=== PATIENT | male | born 1955 | race Caucasian/White ===

== ENCOUNTER 2017-12-17 19:31 | Emergency (ER) | payer OTHER, MEDICAID ==
[~2017-12-17] VITALS: Ht 172.7 cm; Wt 95.9 kg
[~2017-12-17 19:31] MED LIST: ALBU2.5I INH; ASPI81TA11 PO; ATOR20TA PO; CLOT1CRE6 TOPICAL; GINKTAB; LACTCAP7 PO; NEBULIZER1 MI1; PANT20 PO; PNEU0.5I IM; PRED20 PO; SYMB80AE INH; XANA0.5T PO; Z.0.OXYGENDME NC; ZOSTINJ SQ; [UNRECOGNIZED DRUG - OTHER]
[2017-12-17 19:34] VITALS: BP 176/98; PULSE 88; RESP 16; TEMP 98.2; O2SAT 94
--- NOTE | 2017-12-17 20:09 | RADRPT ---
EXAM DATE/TIME: 12/17/2017 19:46 [facility] COMPARISON: CHEST PA & LAT, April 03, 2016, 21:45. INDICATIONS : Right side chest pain. No known injury. MEDICAL HISTORY : Chronic obstructive pulmonary disease. Left rib fractures. SURGICAL HISTORY : None. ENCOUNTER: Initial ACUITY: 2 days PAIN SCORE: 9/10 LOCATION: Right lower chest FINDINGS: PA and lateral views of the chest demonstrate the lungs to be symmetrically aerated without evidence of mass, infiltrate or effusion. The cardiomediastinal contours are unremarkable. Osseous structure s are intact. CONCLUSION: 1. No acute cardiopulmonary disease. Luis Kevin MD on December 17, 2017 at 20:07 Board Certified Radiologist. This report was verified electronically.
[2017-12-17 21:06] LABS: BASOPHIL # 0.1 TH/MM3 (0-0.2); BASOPHIL % 0.7 % (0.0-2.0); EOSINOPHIL # 0.4 TH/MM3 (0-0.4); EOSINOPHIL % 3.7 % (0.0-4.0); HEMATOCRIT 44.8 % (39.0-51.0); HEMOGLOBIN 15.2 GM/DL (13.0-17.0); LYMPH % 37.1 % (9.0-44.0); LYMPHOCYTE # 4.4 TH/MM3 (1.0-4.8); MEAN CELL VOLUME 96.8 FL (80.0-100.0); MEAN CORPUSCULAR HEMOGLOBIN 32.9 PG (27.0-34.0); MEAN CORPUSCULAR HGB CONC 33.9 % (32.0-36.0); MEAN PLATELET VOLUME 7.6 FL (7.0-11.0); MONO % 7.6 % (0.0-8.0); MONOCYTE # 0.9 TH/MM3 (0-0.9); NEUT % 50.9 % (16.0-70.0); PLATELET COUNT 222 TH/MM3 (150-450); RED BLOOD COUNT 4.63 MIL/MM3 (4.50-5.90); RED CELL DISTRIBUTION WIDTH 14.3 % (11.6-17.2); WHITE BLOOD COUNT 11.8 TH/MM3 (4.0-11.0)
[2017-12-17 21:33] LABS: ALBUMIN 3.9 GM/DL (3.4-5.0); AST (GOT) 16 U/L (15-37); BICARBONATE 27.8 MEQ/L (21.0-32.0); BLOOD UREA NITROGEN 17 MG/DL (7-18); CALCIUM 8.8 MG/DL (8.5-10.1); CHLORIDE 106 MEQ/L (98-107); CREATININE 0.94 MG/DL (0.60-1.30); GLOMERULAR FILTRATION RATE 81 ML/MIN (>89); GLUCOSE,RANDOM 86 MG/DL (74-106); SODIUM (NA) 141 MEQ/L (136-145)
[2017-12-17 21:34] LABS: ALT (GPT) 18 U/L (12-78)
[2017-12-17 21:36] LABS: ALKALINE PHOSPHATASE 34 U/L (45-117); TOTAL BILIRUBIN ADULT 0.3 MG/DL (0.2-1.0)
[2017-12-17 23:23] VITALS: BP_SYST 179; BP_SYST 180; BP_DIAS 88; BP_DIAS 94; PULSE 79; RESP 18; O2SAT 99
[2017-12-17] MEDS ORDERED: ONDANSETRON HCL 4 MG/2 ML VIAL IVP ONE (23:30)
[2017-12-17] MEDS ORDERED: HYDROmorphone HCL PF 1 MG/ML VIAL IVS ONE (23:30)
[2017-12-17] MEDS ORDERED: SODIUM CHLORIDE 0.9% FLUSH 10 ML FLUSH IV FLUSH PRN (23:30)
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
[2017-12-17 23:32] VITALS: O2SAT 96
[2017-12-17] MEDS ORDERED: ALBU.5I NEB (23:37)
[2017-12-17] MEDS ORDERED: PRED20 PO (23:37)
[2017-12-17] MEDS ORDERED: MELO7.5T27 PO (23:37)
[2017-12-17] MEDS ORDERED: [UNRECOGNIZED DRUG - OTHER] PO (23:37)
[2017-12-18] MEDS ORDERED: HYDROmorphone HCL PF 2 MG/ML VIAL IV ONE (00:15)
[2017-12-18] MEDS ORDERED: MORPHINE SULFATE 4 MG/ML INJ IV PUSH PRN (00:30)
[2017-12-18] MEDS ORDERED: ACETAMINOPHEN/HYDROcodone 325 MG/7.5 MG TAB PO PRN (00:30)
[2017-12-18] MEDS ORDERED: ASPIRIN 81 MG CHEW TAB PO ONE (00:30)
[2017-12-18] MEDS ORDERED: SODIUM CHLORIDE 0.9% FLUSH 10 ML FLUSH IV FLUSH PRN (00:30)
[2017-12-18] MEDS ORDERED: ONDANSETRON HCL 4 MG/2 ML VIAL IV PUSH PRN (00:30)
[2017-12-18 00:33] VITALS: BP 160/89; PULSE 74; O2SAT 96
[2017-12-18] MEDS ORDERED: IOHEXOL 350 MG/ML 10 ML VIAL (for RAD DIAG) IVCONTRAST ONE (00:46)
[2017-12-18 00:55] LABS: TROPONIN I LESS THAN 0.02 NG/ML (0.02-0.05)
--- NOTE | 2017-12-18 01:13 | RADRPT ---
EXAM DATE/TIME: 12/18/2017 00:40 This report includes an Addendum and supersedes previous reports for this exam. [facility] COMPARISON: No previous studies available for comparison. INDICATIONS : Back pain. IV CONTRAST: 100 cc Omnipaque 350 (iohexol) IV RADIATION DOSE: 9.23 CTDIvol (mGy) MEDICAL HISTORY : Chronic obstructive pulmonary disease. Congestive heart failure. SURGICAL HISTORY : None. ENCOUNTER: Initial ACUITY: 1 day PAIN SCALE: 8/10 LOCATION: Bilateral back TECHNIQUE: Volumetric scanning was performed using a multi-row detector CT scanner. The data was post processed with a variety of visualization algorithms including full volume maximum intensity projection, multi -planar sliding thin slab reformation, curved planar reformation, and surface rendering techniques. Using automated exposure control and adjustment of the mA and/or kV according to patient size, radiat ion dose was kept as low as reasonably achievable to obtain optimal diagnostic quality images. DICOM format image data is available electronically for review and comparison. FINDINGS: LUNGS: There is no consolidation or pneumothorax. No concerning pulmonary nodule is visualized. No pleural fluid is present. MEDIASTINUM: No abnormally enlarged lymph nodes by CT criteria. No axillary or hilar abnormalities are identified. ABDOMEN: The liver and spleen are free of focal defects. The gallbladder and pancreas demonstrate no abnormali ty. The adrenal glands are normal. The kidneys demonstrate no evidence of solid renal mass or hydrone phrosis. No free fluid or abdominal masses are identified. No para-aortic adenopathy is seen. PELVIS: No evidence of free fluid or pelvic mass. No abnormally enlarged inguinal or retroperitoneal lymph no sonia are present. The bladder is unremarkable. THORACIC AORTA: The thoracic aortic root is normal with normal branching of the great vessels. There is no evidence of aneurysm or dissection. There is mild atherosclerotic change. ABDOMINAL AORTA: The aorta is normal in caliber without aneurysm or dissection. The renal arteries are patent bilater ally. The proximal celiac and superior mesenteric arteries are patent and normal in diameter. PELVIC VESSELS: The internal iliac and external iliac vessels are patent without aneurysm or stenosis. CONCLUSION: Thoracic aorta is intact with no evidence of aneurysm or dissection. Mild atheroscler otic changes are present. Chacho Tobin MD on December 18, 2017 at 1:10 Board Certified Radiologist. This report was verified electronically. ADDENDUM: COMPARISON: CT PULMONARY ANGIOGRAM, April 04, 2016, 18:34. We are asked to comment upon the patient's pulmonary circulation as the patient has chest pain. There is excellent filling of the pulmonary vasculature. These are well-visualized. There is no pulmo nary embolus. Ronnell Davila MD on December 18, 2017 at 9:33 Board Certified Radiologist. This report was verified electronically.
[2017-12-18 01:45] VITALS: BP 171/97; PULSE 81; RESP 20; TEMP 97.7; O2SAT 94
[2017-12-18 03:53] LABS: TROPONIN I LESS THAN 0.02 NG/ML (0.02-0.05)
[2017-12-18 04:00] VITALS: BP 136/74; PULSE 65; RESP 20; TEMP 98.6; O2SAT 97
[2017-12-18] MEDS ORDERED: NITROGLYCERIN 2% OINT 1 GM PACKET TOP SCH (06:00)
[2017-12-18 08:00] VITALS: BP 150/73; PULSE 71; RESP 17; TEMP 96.6; O2SAT 90
[2017-12-18] MEDS ORDERED: SODIUM CHLORIDE 0.9% FLUSH 10 ML FLUSH IV FLUSH SCH (09:00)
[2017-12-18] MEDS ORDERED: PANTOPRAZOLE SOD 40 MG DELAYED RELEASE TAB PO SCH (09:00)
[2017-12-18] MEDS ORDERED: RESP: ALBUTEROL 2.5 MG/3 ML NEB (PRN) NEB (09:30)
[2017-12-18] MEDS ORDERED: methylPREDNISolone SOD SUCC 125 MG/2 ML VIAL IV PUSH SCH (09:30)
[2017-12-18] MEDS ORDERED: BUDESONIDE-FORMOTEROL 80/4.5 MCG INHALER INH SCH (09:30)
--- NOTE | 2017-12-18 10:41 | HHI.HP ---
HPI Primary Care Physician Unknown Chief Complaint Chest pain History of Present Illness This is a 62-year-old male with history of COPD and hyperlipidemia presents to ED with complaint of chest pain. Patient states that 5 days ago he began with a middle back pain. Then 2 days ago he started having the same type of discomfort but it was in the center of his chest. He states it is still there. Discomfort has been there greater than 2 hours constant. It is worse when he coughs. States that the pain medicine that he was given in the emergency department did seem to help. He does not recall being short of breath nauseous or diaphoretic. States he was wheezing but that is chronic. He also has a chronic cough. Denies knowledge of prior CAD. Review of Systems General: Patient denies fevers, chills, and recent travel HEENT: Patient denies headache, sore throat, difficulty swallowing. Cardiovascular: Has the chest discomfort as mentioned above. Denies sensation of heart beating rapidly or irregularly. No syncope. Respiratory: Denies shortness of breath or inspirational chest discomfort. Has a chronic nonproductive cough. Chronically has wheezing. Denies hemoptysis. GI: Patient denies nausea, vomiting, diarrhea, abdominal pain, bloody stools. Musculoskeletal: Patient denies joint pain or edema. Denies calf pain or edema. Neurovascular: Patient denies numbness, tingling, weakness in extremities. Denies headache. Endocrine: Denies polyuria and polydipsia. Hematologic: Denies easy bruising. Skin: Denies rash or itching. Past Family Social History Allergies: Coded Allergies: fluticasone (Unverified Allergy, Intermediate, 06/11/17) RASH/ITCHING fluticasone furoate (Unverified Allergy, Intermediate, 06/11/17) RASH/ITCHING salmeterol (Unverified Allergy, Intermediate, 06/11/17) RASH/ITCHING ipratropium (Unverified Adverse Reaction, Intermediate, 06/11/17) Past Medical History COPD and hyperlipidemia. Denies hypertension diabetes and CAD. Patient continues to smoke cigarettes. Past Surgical History Noncontributory. Reported Medications Reported Meds & Active Scripts Active Symbicort Inh (Budesonide/Formoterol Fumarate) 80-4.5 Mcg/Act Aero 1 Puff INH Q12HR Nebulizer 1 Mis Mis 1 Ea .ROUTE DIRECTED Reported Albuterol Neb (Albuterol Sulfate) 2.5 Mg/0.5 Ml Neb 2.5 Mg NEB Q4HR NEB PRN Note: The Albuterol Sulfate Inhalation Solution is concentrated and must be diluted. Read complete instructions carefully before using. [xedia] 3 Mg PO DAILY Prednisone 20 Mg Tab 20 Mg PO DAILY Meloxicam 7.5 Mg Tab 7.5 Mg PO DAILY Active Ordered Medications Current Medications Medications (Trade) Dose Ordered Sig/Vish Route Start Time Stop Time Status Last Admin (NS Flush) 2 ml UNSCH PRN IV FLUSH 12/17/17 23:30 (NS Flush) 2 ml UNSCH PRN IV FLUSH 12/18/17 00:30 (NS Flush) 2 ml BID IV FLUSH 12/18/17 09:00 12/18/17 07:53 ([place] 7.5-325 Mg) 1 tab Q4H PRN PO 12/18/17 00:30 (Morphine Inj) 2 mg Q4H PRN IV PUSH 12/18/17 00:30 12/18/17 07:53 (Zofran Inj) 4 mg Q6H PRN IV PUSH 12/18/17 00:30 (Protonix) 40 mg DAILY PO 12/18/17 09:00 (Nitroglycerin 2% Oint) 1 inch Q6HR TOP 12/18/17 06:00 12/18/17 06:00 (Albuterol Neb) 2.5 mg Q4HR NEB PRN NEB 12/18/17 09:30 (SoluMEDROL INJ) 60 mg NOW IV PUSH 12/18/17 09:30 12/18/17 18:00 (Symbicort 80-4.5 Mcg Inh) 2 puff Q12HR INH 12/18/17 09:30 Family History Not sure of his family medical history. Social History Patient continues to smoke cigarettes at about three-quarter pack a day. Has on average a couple beers every evening. Denies illicit drugs. Physical Exam Vital Signs Vital Signs Date Time Temp Pulse Resp B/P (MAP) Pulse Ox O2 Delivery O2 Flow Rate FiO2 12/18/17 08:00 96.6 71 17 150/73 (98) 90 12/18/17 07:58 18 12/18/17 04:00 98.6 65 20 136/74 (94) 97 12/18/17 01:45 97.7 81 20 171/97 (121) 94 12/18/17 00:33 74 160/89 (112) 96 12/17/17 23:32 96 Room Air 12/17/17 23:23 79 18 179/88 (118) 99 Room Air 180/94 (122) 12/17/17 19:34 98.2 88 16 176/98 (124) 94 Physical Exam GENERAL: This is a well-nourished, well-developed patient, in no apparent distress. Patient speaks in clear complete sentences. Patient is pleasant. HEENT: Head is atraumatic and normocephalic. Neck is supple without lymphadenopathy and trachea is midline. No JVD or carotid bruits. CARDIOVASCULAR: Regular rate and rhythm without murmurs, gallops, or rubs. RESPIRATORY: Breath sounds equal bilaterally. Bilateral expiratory wheezing. No rales or rhonchi. Chest wall is nontender. No use of accessory muscles. GASTROINTESTINAL: Abdomen is nontender, nondistended. Abdomen soft. No obvious pulsatile mass or bruit. No CVA tenderness. Strong femoral pulses bilaterally. Normal bowel sounds in all quadrants. MUSCULOSKELETAL: Patient is moving upper and lower extremities freely. No calf tenderness or edema, no Homans sign. Strong pulses in upper and lower extremities. NEUROLOGICAL: Patient is alert and oriented. Cranial nerves 2-12 are grossly intact. No focal deficits and speech is clear. SKIN: No rash and turgor is normal. Laboratory Laboratory Tests Test 12/17/17 20:22 12/18/17 03:02 White Blood Count 11.8 Red Blood Count 4.63 Hemoglobin 15.2 Hematocrit 44.8 Mean Corpuscular Volume 96.8 Mean Corpuscular Hemoglobin 32.9 Mean Corpuscular Hemoglobin Concent 33.9 Red Cell Distribution Width 14.3 Platelet Count 222 Mean Platelet Volume 7.6 Neutrophils (%) (Auto) 50.9 Lymphocytes (%) (Auto) 37.1 Monocytes (%) (Auto) 7.6 Eosinophils (%) (Auto) 3.7 Basophils (%) (Auto) 0.7 Neutrophils # (Auto) 6.0 Lymphocytes # (Auto) 4.4 Monocytes # (Auto) 0.9 Eosinophils # (Auto) 0.4 Basophils # (Auto) 0.1 CBC Comment DIFF FINAL Differential Comment Blood Urea Nitrogen 17 Creatinine 0.94 Random Glucose 86 Total Protein 7.0 Albumin 3.9 Calcium Level 8.8 Alkaline Phosphatase 34 Aspartate Amino Transf (AST/SGOT) 16 Alanine Aminotransferase (ALT/SGPT) 18 Total Bilirubin 0.3 Sodium Level 141 Potassium Level 3.7 Chloride Level 106 Carbon Dioxide Level 27.8 Anion Gap 7 Estimat Glomerular Filtration Rate 81 Total Creatine Kinase 52 60 Troponin I LESS THAN 0.02 LESS THAN 0.02 Lipase 107 Result Diagram: 12/17/17202112/17/172021 Imaging Last 48 hours Impressions Chest X-Ray 12/17/17 0000 Signed Impressions: Service Date/Time: Sunday, December 17, 2017 19:46 - CONCLUSION: 1. No acute cardiopulmonary disease. Luis Kevin MD Aorta CTA 12/17/17 0000 Signed Impressions: Service Date/Time: Monday, December 18, 2017 00:40 - CONCLUSION: Thoracic aorta is intact with no evidence of aneurysm or dissection. Mild atherosclerotic changes are present. Chacho Tobin MD ADDENDUM: COMPARISON: CT PULMONARY ANGIOGRAM, April 04, 2016, 18:34. We are asked to comment upon the patient's pulmonary circulation as the patient has chest pain. There is excellent filling of the pulmonary vasculature. These are well-visualized. There is no pulmonary embolus. Ronnell Davila MD Course EKGs were sinus rhythm without significant ST segment depressions or elevations. Caprini VTE Risk Assessment Caprini VTE Risk Assessment: Mod/High Risk (score >= 2) Caprini Risk Assessment Model Point Value = 1 Point Value = 2 Point Value = 3 Point Value = 5 Age 41-60 Minor surgery BMI > 25 kg/m2 Swollen legs Varicose veins or History of unexplained or recurrent spontaneous Oral contraceptives or hormone replacement Sepsis (< 1 month) Serious lung disease, including pneumonia (< 1 month) Abnormal pulmonary function Acute myocardial infarction Congestive heart failure (< 1 month) History of inflammatory bowel disease Medical patient at bed rest Age 61-74 Arthroscopic surgery Major open surgery (> 45 min) Laparoscopic surgery (> 45 min) Malignancy Confined to bed (> 72 hours) Immobilizing plaster cast Central venous access Age >= 75 History of VTE Family history of VTE Factor V Leiden Prothrombin [id number] Lupus anticoagulant Anticardiolipin antibodies Elevated serum homocysteine Heparin-induced thrombocytopenia Other congenital or acquired thrombophilia Stroke (< 1 month) Elective arthroplasty Hip, pelvis, or leg fracture Acute spinal cord injury (< 1 month) Prophylaxis Regimen Total Risk Factor Score Risk Level Prophylaxis Regimen 0-1 Low Early ambulation 2 Moderate Order ONE of the following: *Sequential Compression Device (SCD) *Heparin 5000 units SQ BID 3-4 Higher Order ONE of the following medications: *Heparin 5000 units SQ TID *Enoxaparin/Lovenox 40 mg SQ daily (WT < 150 kg, CrCl > 30 mL/min) *Enoxaparin/Lovenox 30 mg SQ daily (WT < 150 kg, CrCl > 10-29 mL/min) *Enoxaparin/Lovenox 30 mg SQ BID (WT < 150 kg, CrCl > 30 mL/min) AND/OR *Sequential Compression Device (SCD) 5 or more Highest Order ONE of the following medications: *Heparin 5000 units SQ TID (Preferred with Epidurals) *Enoxaparin/Lovenox 40 mg SQ daily (WT < 150 kg, CrCl > 30 mL/min) *Enoxaparin/Lovenox 30 mg SQ daily (WT < 150 kg, CrCl > 10-29 mL/min) *Enoxaparin/Lovenox 30 mg SQ BID (WT < 150 kg, CrCl > 30 mL/min) AND *Sequential Compression Device (SCD) Assessment and Plan Assessment and Plan * Atypical chest pain: Patient has had first 2 sets of cardiac enzymes and EKGs ruling out purposes with history of greater than 2 days of constant chest discomfort. He was seen by Dr. Kar López of cardiology and the chest pain center. An addendum has been made to the CT area of the aorta by radiologist indicating there are no evidence of pulmonary emboli. Patient will be treated for COPD and be discharged home at this time with instructions to follow-up with PCP and to quit smoking. Return to ED for interval issues. * COPD: Resume medications. Quit smoking. Will be given a DuoNeb and Solu- Medrol IV 1. * Tobacco abuse: Patient has been counseled on importance of smoking cessation. * Hyperlipidemia: Continue current medication. Patient is stable at this time. He is agreeable to this plan. Brent Solano Dec 18, 2017 10:41
[2017-12-18] MEDS ORDERED: EZET10 PO (10:51)
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
--- NOTE | 2017-12-18 15:52 | EKG ---
Date Performed: 12/18/2017 Time Performed: 03:07:27 PTAGE: 62 years EKG: Sinus rhythm INCOMPLETE RIGHT BUNDLE BRANCH BLOCK BORDERLINE ECG NO PREVIOUS TRACING DOCTOR: Kar López Interpretating Date/Time 12/18/2017 15:51:45
--- NOTE | 2017-12-18 15:54 | EKG ---
Date Performed: 12/18/2017 Time Performed: 00:54:45 PTAGE: 62 years EKG: Sinus rhythm MINIMAL ST DEPRESSION BORDERLINE ECG NO PREVIOUS TRACING DOCTOR: Kar López Interpretating Date/Time 12/18/2017 15:53:03
== END 2017-12-18 11:45 | disposition home or self-care (01) ==
LOC: NEPD 19:31 → UNDOADMOB 12-18 00:32 → NEDA 12-18 00:32 → NEDH 12-18 04:44 → NEDA 12-18 04:44 → NEPD 12-18 11:45
DX: R07.89 Other chest pain (principal)
CPT/HCPCS: 71046; 71275; 74174; 80053; 82550; 83690; 84484; 85025; 93005; 96374; 96375; 99284; J1170; J2270; J2405; J2930; Q9967

== ENCOUNTER 2018-10-30 17:40 | Observation (INO) ==
--- NOTE | 2018-10-30 18:54 | ED ---
HPI General Chief complaint: Chest Pain Stated complaint: sent Time Seen by Provider: 10/30/18 18:40 History of Present Illness HPI narrative: 63-year-old male with history of tobacco use, COPD, borderline hypertension who is not currently on any antihypertensive medication. He presents for evaluation. The patient reports that for the past week he has had fatigue. Yesterday he was having some dyspnea and lightheadedness so he used his at home pulse oximeter and he reports that his pulse was in the 30s. He reports that he tried using the pulse oximeter on his roommate and his sister and it seemed to be working normally for them so he believes that it was working properly. He checked his pulse again this morning was in the 30s. He reports that he went to see his primary care physician. At some point he developed a substernal chest pain which he describes as a pressure. He was given nitroglycerin at his primary care physician's office and the pain resolved after nitroglycerin. He was then sent here for further evaluation. He reports a history of COPD and chronic cough but he denies any acute worsening wheezing or worsening cough. He is denying any nausea, vomiting, diaphoresis, current lightheadedness or dizziness, lower extremity edema, recent medication changes. He has no other complaints at this time. Related Data Allergies Allergy/AdvReac Type Severity Reaction Status Date / Time fluticasone Allergy Intermediate Hives Verified 10/30/18 19:32 fluticasone furoate Allergy Intermediate Hives Verified 10/30/18 19:32 salmeterol Allergy Intermediate Hives Verified 10/30/18 19:32 ipratropium AdvReac Intermediate Hives Verified 10/30/18 19:32 Review of Systems ROS: all other systems reviewed are negative PMFSH Social History Social History Substance History: No History of Abuse Second Hand Smoke Exposure: No Smoking Status: Current every day smoker Tobacco Type: Cigarettes How Often Do You Have a Drink Containing Alcohol: 2 to 3 times a week Recent Travel in [facility] within the Last 8 Weeks: No Recent Out of Country Travel within the Last 8 Weeks: No Exam Narrative Exam Narrative: GENERAL: Well-developed well-nourished male in no acute distress SKIN: Warm and dry. HEAD: Atraumatic. Normocephalic. EYES: Pupils equal and round. No scleral icterus. No injection or drainage. ENT: No nasal bleeding or discharge. Mucous membranes pink and moist. NECK: Trachea midline. No JVD. CARDIOVASCULAR: Regular rate and rhythm. No murmur appreciated. RESPIRATORY: No accessory muscle use. Inspiratory and expiratory wheezing noted bilaterally. No crackles. GASTROINTESTINAL: Abdomen soft, non-tender, nondistended. Hepatic and splenic margins not palpable. MUSCULOSKELETAL: No obvious deformities. No clubbing. No cyanosis. No edema. NEUROLOGICAL: Awake and alert. No obvious cranial nerve deficits. Motor grossly within normal limits. Normal speech. PSYCHIATRIC: Appropriate mood and affect; insight and judgment normal. Course Initial Documented Vital Signs Temperature 99.1 F 10/30/18 18:07 Pulse Rate 77 10/30/18 18:07 Respiratory Rate 18 10/30/18 18:07 Blood Pressure 149/86 H 10/30/18 18:07 Pulse Oximetry 94 L 10/30/18 18:07 Last Documented Vital Signs Temperature 99.1 F 10/30/18 18:07 Pulse Rate 78 10/30/18 19:18 Respiratory Rate 16 10/30/18 19:18 Blood Pressure 164/74 H 10/30/18 18:49 Pulse Oximetry 94 L 10/30/18 19:22 Medical Decision Making TERI Attestation TERI supervised visit: Yes Attestation: I, Dr. Wisdom, have reviewed the advance practice practitioner's documentation and am in agreement, met with the patient face to face, made the diagnosis, and the medical decision making was done by me. *My assessment and Findings: This patient presents to us with a chief complaint of bradycardia which was noticed today when he checked his pulse ox. He states that he has COPD and has a home pulse ox. He states that he checked it a couple times and it continued to be in the 30s. He subsequently went to his primary care provider and was then sent to us for further evaluation. His only associated symptom is some fatigue. His heart rate has been in the 70s here. It is a sinus rhythm. Please see Jaspreet Butler PA-C's note for a more detailed H&P, final diagnosis and disposition MDM Narrative Medical decision making narrative: The patient was placed on ECG monitoring pulse oximetry. A 12 EKG was obtained. IV established, lab work ordered. The patient was given aspirin and albuterol nebulizer. EKG reveals sinus rhythm with incomplete right bundle branch block, no acute ST elevation. Lab work reveals no acute abnormalities. At this point in time the plan will be to admit him to the chest pain center for serial cardiac enzymes and rule out purposes. He is agreeable. Medical Screen Exam Complete: Yes Emergency Medical Condition: Yes Differential Diagnosis Differential Diagnosis: Acute coronary syndrome, angina, symptomatic bradycardia , heart block, COPD exacerbation, pneumothorax, pulmonary embolism Lab Data Result diagrams: 10/30/18 19:05 10/30/18 19:05 Lab Results 10/30/18 10/30/18 10/30/18 Range/Units 19:05 19:05 19:05 WBC 7.7 (4.0-11.0) th/mm3 RBC 4.72 (4.50-5.90) mil/mm3 Hgb 15.4 (13.0-17.0) gm/dL Hct 45.3 (39.0-51.0) % MCV 96.0 (80.0-100.0) fL MCH 32.7 (27.0-34.0) pg MCHC 34.0 (32.0-36.0) % RDW 14.2 (11.6-17.2) % Plt Count 234 (150-450) th/mm3 MPV 7.9 (7.0-11.0) fL Neut % (Auto) 55.4 (16.0-70.0) % Lymph % (Auto) 30.6 (9.0-44.0) % [place] % (Auto) 8.3 H (0.0-8.0) % Eos % (Auto) 4.6 H (0.0-4.0) % Baso % (Auto) 1.1 (0.0-2.0) % Neut # (Auto) 4.3 (1.8-7.7) th/mm3 Lymph # (Auto) 2.3 (1.0-4.8) th/mm3 [place] # (Auto) 0.6 (0.0-0.9) th/mm3 Eos # (Auto) 0.3 (0.0-0.4) th/mm3 Baso # (Auto) 0.1 (0.0-0.2) th/mm3 WBC Differential . Differential Comment Auto diff final PT 10.6 (9.8-11.6) sec INR 1.0 Ratio APTT 26.1 (23.4-31.7) sec Sodium 141 (136-145) meq/L Potassium 4.1 (3.5-5.1) meq/L Chloride 109 H (98-107) meq/L Carbon Dioxide 26.0 (21.0-32.0) meq/L Anion Gap 6 (5-15) meq/L BUN 16 (7-18) mg/dL Creatinine 0.94 (0.60-1.30) mg/dL Estimated GFR 81 L (>89) mL/min Random Glucose 82 (74-106) mg/dL Calcium 8.6 (8.5-10.1) mg/dL Magnesium 2.1 (1.5-2.5) mg/dL Total Bilirubin 0.5 (0.2-1.0) mg/dL AST 19 (15-37) U/L ALT 22 (12-78) U/L Alkaline Phosphatase 32 L (45-117) U/L Total Creatine Kinase 95 (39-308) U/L Troponin I Less than 0.02 L (0.02-0.05) ng/mL Total Protein 6.8 (6.4-8.2) g/dL Albumin 3.5 (3.4-5.0) g/dL TSH 1.920 (0.358-3.740) uIU/mL Imaging Data Radiologist's impression: Chest X-Ray 10/30/18 18:49 CONCLUSION: No acute cardiopulmonary disease. ECG Data EKG Prior to Arrival: No Attestation: I personally reviewed and interpreted this ECG as follows: (EKG shows a sinus rhythm with a rate of no acute ischemic changes.) Discharge Plan Discharge Disposition Patient Disposition: ED Admit(ED Internal Use Only) Discharge Condition Condition: Stable Discharge Order Discharge Orders: ED Use Only Admit Order (Routine); Ordered 10/30/18 Ordered By: Jaspreet Butler Discharge Details Diagnosis: Chest pain Physicians Team ED Provider: Laura Wisdom ED Midlevel Provider: Jaspreet Butler Primary Care Provider: UNKNOWN, Attending Provider: Kar López Status ED Status: Admitted Observation Patient
[2018-10-30 19:22] LABS: Baso # (Auto) 0.1 th/mm3 (0.0-0.2); Baso % (Auto) 1.1 % (0.0-2.0); Eos # (Auto) 0.3 th/mm3 (0.0-0.4); Eos % (Auto) 4.6 % (0.0-4.0); Hematocrit 45.3 % (39.0-51.0); Hemoglobin 15.4 gm/dL (13.0-17.0); Lymph # (Auto) 2.3 th/mm3 (1.0-4.8); Lymph % (Auto) 30.6 % (9.0-44.0); Mean Corpuscular Hemoglobin 32.7 pg (27.0-34.0); Mean Platelet Volume 7.9 fL (7.0-11.0); Mono # (Auto) 0.6 th/mm3 (0.0-0.9); Mono % (Auto) 8.3 % (0.0-8.0); Neut # (Auto) 4.3 th/mm3 (1.8-7.7); Neut % (Auto) 55.4 % (16.0-70.0); Platelet Count 234 th/mm3 (150-450); Red Blood Count 4.72 mil/mm3 (4.50-5.90); Red Cell Distribution Width 14.2 % (11.6-17.2); White Blood Count 7.7 th/mm3 (4.0-11.0)
[2018-10-30 19:29] LABS: Activated Partial Thrombo Time 26.1 sec (23.4-31.7); Prothrombin Time 10.6 sec (9.8-11.6)
--- NOTE | 2018-10-30 19:33 | XR ---
EXAM DATE: 10/30/2018 7:29 PM EST AGE/SEX: 63 years / Male INDICATIONS: Chest pain and shortness of breath. CLINICAL DATA: This is the patient's initial encounter. Patient reports that signs and symptoms have been present for > 1 year and indicates a pain score of 1/10. MEDICAL/SURGICAL HISTORY: Chronic obstructive pulmonary disease. None. COMPARISON: [facility] [place], CHEST PA & LAT, 12/17/2017. . FINDINGS: A single AP view of the chest demonstrates the lungs to be symmetrically aerated without evidence of mass, infiltrate or effusion. The cardiomediastinal contours are unremarkable. Old left clavicular a nd left-sided rib fractures.. CONCLUSION: No acute cardiopulmonary disease. Electronically signed by: Anton Saldivar MD Board Certified Radiologist 10/30/2018 7:31 PM EST
[2018-10-30 19:40] LABS: Albumin 3.5 g/dL (3.4-5.0); Anion Gap 6 meq/L (5-15); Aspartate Aminotransferase 19 U/L (15-37); Blood Urea Nitrogen 16 mg/dL (7-18); Calcium 8.6 mg/dL (8.5-10.1); Chloride 109 meq/L (98-107); Glomerular Filtration Rate 81 mL/min (>89); Glucose,Random 82 mg/dL (74-106); Magnesium 2.1 mg/dL (1.5-2.5); Potassium 4.1 meq/L (3.5-5.1); Sodium 141 meq/L (136-145)
[2018-10-30 19:41] LABS: Alanine Aminotransferase 22 U/L (12-78)
[2018-10-30 19:50] LABS: Alkaline Phosphatase 32 U/L (45-117); Total Protein 6.8 g/dL (6.4-8.2)
[2018-10-30 20:01] LABS: Creatine Kinase 95 U/L (39-308)
[2018-10-30 22:31] LABS: Creatine Kinase 86 U/L (39-308)
[2018-10-31 01:46] LABS: Creatine Kinase 83 U/L (39-308)
--- NOTE | 2018-10-31 07:31 | ECG ---
Date Performed: 10/30/2018 Time Performed: 18:25:45 PTAGE: 63 years EKG: Sinus rhythm INCOMPLETE RIGHT BUNDLE BRANCH BLOCK ABNORMAL ECG NO PREVIOUS TRACING DOCTOR: Kar López Interpretating Date/Time 10/31/2018 07:30:55
[2018-10-31 07:57] VITALS: BP 157/79; RESP 16; TEMP 97.7; O2SAT 94
[2018-10-31 08:07] VITALS: PULSE 73
--- NOTE | 2018-10-31 08:55 | P.HPCA ---
History of Present Illness Primary Care Physician: UNKNOWN Chief Complaint: Bradycardia History of Present Illness: This is a 63-year-old male history of COPD and hyperlipidemia that presents to ED at the request of his PCP at [facility] to be evaluated for bradycardia. He states that he checks his pulse oximetry at home regularly and over the last couple days his heart rate has been in the 30s. States this is unusual for him. He states he may have felt a little bit off balance. He went to his PCP and was advised to come to the ED for further evaluation. Denies chest pain. Denies shortness of breath, nausea, diaphoresis. Cannot recall a sensation of heart beating irregularly. Currently has no complaints. Past medical history: History of COPD, tobacco abuse, hyperlipidemia. Denies diabetes, hypertension, and CAD. Family history: Denies family history of CAD. Patient continue to smoke cigarettes at about 1 pack of cigarettes daily for 54 years. Denies alcohol or illicit drug use. - Diagnosis (1) Bradycardia (2) COPD (chronic obstructive pulmonary disease) (3) Tobacco abuse (4) Hyperlipidemia Review of Systems General: Patient denies fevers, chills, and recent travel. HEENT: Patient denies headache, sore throat, difficulty swallowing. Cardiovascular: Denies chest discomfort as mentioned above. Complains of bradycardia with heart rate in the 30s. Denies sensation of heart beating irregularly or rapidly. No syncope. Denies diaphoresis. He states he felt a little off balance. Respiratory: Denies shortness of breath or inspirational chest discomfort. Denies coughing wheezing or hemoptysis. GI: Patient denies nausea, vomiting, diarrhea, abdominal pain, bloody stools. Musculoskeletal: Patient denies joint pain or edema. Denies calf pain or edema. Neurovascular: Patient denies numbness, tingling, weakness in extremities. Denies headache. Endocrine: Denies polyuria and polydipsia. Hematologic: Denies easy bruising. Skin: Denies rash or itching. PMFSH - History History Provided By: Patient - Medical History Medical History: Medical History (Last Updated 10/31/18 @ 02:34 by Anita Casey RN) COPD (chronic obstructive pulmonary disease) High cholesterol - Surgical History Surgical History: Surgical History (Last Updated 10/31/18 @ 02:34 by Anita Casey RN) H/O hand surgery - Tobacco History Second Hand Smoke Exposure: No Tobacco Use In Past 30 Days: Yes Smoking Status: Current every day smoker Tobacco Type: Cigarettes - Alcohol History How Often Do You Have a Drink Containing Alcohol: 2 to 3 times a week - Substance Use History Substance History: No History of Abuse - Travel History Recent Travel in the [place] Within the Last 8 Weeks: No Recent Travel Out of the Country Within the Last 8 Weeks: No - Immunization History Tetanus Immunization: >5 Years Medications and Allergies Active Medications: Active Medications Albuterol (Albuterol Neb (Prn)) 1.25 mg NEB Q4HR NEB PRN PRN Reason: WHEEZING Sodium Chloride (Ns Flush) 2 ml IV.FLUSH UNSCH PRN PRN Reason: FLUSH AFTER USING IV ACCESS Sodium Chloride (Ns Flush) 2 ml IV.FLUSH PRN PRN PRN Reason: FLUSH AFTER USING IV ACCESS Sodium Chloride (Ns Flush) 2 ml IV.FLUSH BID GERSON Last Admin: 10/31/18 03:20 Dose: Not Given Allergies Allergy/AdvReac Type Severity Reaction Status Date / Time fluticasone Allergy Rash Verified 10/31/18 02:28 [From Advair Diskus] salmeterol Allergy Rash Verified 10/31/18 02:28 [From Advair Diskus] ipratropium AdvReac Intermediate Shortness Verified 10/31/18 02:28 of Breath Home Medications Medication Instructions Recorded Confirmed Type albuterol sulfate 1.25 mg INHALATION QID PRN 10/31/18 10/31/18 History budesonide-formoterol [Symbicort] 2 puff INHALATION BID 10/31/18 10/31/18 History pravastatin 10 mg PO DAILY 10/31/18 10/31/18 History prednisone 20 mg PO DAILY 10/31/18 10/31/18 History Exam Vital signs: Vital Signs 10/30/18 18:07 10/30/18 18:49 10/30/18 19:15 Temperature 99.1 F Pulse Rate 77 72 78 Respiratory Rate 18 16 Blood Pressure 149/86 H 164/74 H Pulse Oximetry 94 L 99 98 10/30/18 19:18 10/30/18 19:22 10/31/18 01:30 Temperature 98.1 F Pulse Rate 78 65 Respiratory Rate 16 16 Blood Pressure 152/78 H Pulse Oximetry 94 L 99 10/31/18 05:01 10/31/18 07:56 10/31/18 08:06 Temperature 98.0 F 97.7 F Pulse Rate 58 L 74 73 Respiratory Rate 20 16 16 Blood Pressure 152/104 H 157/79 H Pulse Oximetry 96 94 L Intake & Output 10/30/18 10/31/18 10/31/18 18:59 06:59 18:59 Weight 95.254 kg 95 kg Other: # Voids 2 Weight On Admission 95.254 kg Narrative: GENERAL: This is a well-nourished, well-developed patient, in no apparent distress. Patient speaks in clear complete sentences. Patient is pleasant. HEENT: Head is atraumatic and normocephalic. Neck is supple without lymphadenopathy and trachea is midline. No JVD or carotid bruits. CARDIOVASCULAR: Heart rate during examination and 60s. Regular rate and rhythm without murmurs, gallops, or rubs. RESPIRATORY: Scattered expiratory wheezes. Breath sounds equal bilaterally. No rales, or rhonchi. Chest wall is nontender. No use of accessory muscles. GASTROINTESTINAL: Abdomen is nontender, nondistended. Abdomen soft. No obvious pulsatile mass or bruit. No CVA tenderness. Strong femoral pulses bilaterally. Normal bowel sounds in all quadrants. MUSCULOSKELETAL: Patient is moving upper and lower extremities freely. No calf tenderness or edema, no Homans sign. Strong pulses in upper and lower extremities. NEUROLOGICAL: Patient is alert and oriented. Cranial nerves 2-12 are grossly intact. No focal deficits and speech is clear. SKIN: No rash and turgor is normal. Results 10/30/18 19:05 10/30/18 19:05 Cardiac Enzymes 10/30/18 10/30/18 10/31/18 Range/Units 19:05 21:42 01:00 AST 19 (15-37) U/L Troponin I Less than 0.02 L Less than 0.02 L Less than 0.02 L (0.02-0.05) ng/mL Coagulation 10/30/18 Range/Units 19:05 PT 10.6 (9.8-11.6) sec APTT 26.1 (23.4-31.7) sec CBC 10/30/18 Range/Units 19:05 WBC 7.7 (4.0-11.0) th/mm3 RBC 4.72 (4.50-5.90) mil/mm3 Hgb 15.4 (13.0-17.0) gm/dL Hct 45.3 (39.0-51.0) % Plt Count 234 (150-450) th/mm3 Neut # (Auto) 4.3 (1.8-7.7) th/mm3 Lymph # (Auto) 2.3 (1.0-4.8) th/mm3 [place] # (Auto) 0.6 (0.0-0.9) th/mm3 Eos # (Auto) 0.3 (0.0-0.4) th/mm3 Baso # (Auto) 0.1 (0.0-0.2) th/mm3 Comprehensive Metabolic Panel 10/30/18 Range/Units 19:05 Sodium 141 (136-145) meq/L Potassium 4.1 (3.5-5.1) meq/L Chloride 109 H (98-107) meq/L Carbon Dioxide 26.0 (21.0-32.0) meq/L BUN 16 (7-18) mg/dL Creatinine 0.94 (0.60-1.30) mg/dL Calcium 8.6 (8.5-10.1) mg/dL AST 19 (15-37) U/L ALT 22 (12-78) U/L Alkaline Phosphatase 32 L (45-117) U/L Total Protein 6.8 (6.4-8.2) g/dL Albumin 3.5 (3.4-5.0) g/dL Intake and Output 10/30/18 10/31/18 10/31/18 22:59 06:59 14:59 Other: # Voids 2 Weight 95.254 kg 95 kg Weight On Admission 95.254 kg - Imaging and Cardiology Imaging: Impressions Chest X-Ray 10/30/18 18:49 CONCLUSION: No acute cardiopulmonary disease. Caprini VTE Risk Assessment Caprini VTE Risk Assessment: Moderate/High Risk (score >= 2) Caprini Risk Assessment Model: Point Value = 1 Point Value = 2 Point Value = 3 Point Value = 5 Age 41-60 Minor surgery BMI > 25 kg/m2 Swollen legs Varicose veins or History of unexplained or recurrent spontaneous Oral contraceptives or hormone replacement Sepsis (< 1 month) Serious lung disease, including pneumonia (< 1 month) Abnormal pulmonary function Acute myocardial infarction Congestive heart failure (< 1 month) History of inflammatory bowel disease Medical patient at bed rest Age 61-74 Arthroscopic surgery Major open surgery (> 45 min) Laparoscopic surgery (> 45 min) Malignancy Confined to bed (> 72 hours) Immobilizing plaster cast Central venous access Age >= 75 History of VTE Family history of VTE Factor V Leiden Prothrombin [id number] Lupus anticoagulant Anticardiolipin antibodies Elevated serum homocysteine Heparin-induced thrombocytopenia Other congenital or acquired thrombophilia Stroke (< 1 month) Elective arthroplasty Hip, pelvis, or leg fracture Acute spinal cord injury (< 1 month) Prophylaxis Regimen: Total Risk Factor Score Risk Level Prophylaxis Regimen 0-1 Low Early ambulation 2 Moderate Order ONE of the following: *Sequential Compression Device (SCD) *Heparin 5000 units SQ BID 3-4 Higher Order ONE of the following medications: *Heparin 5000 units SQ TID *Enoxaparin/Lovenox 40 mg SQ daily (WT < 150 kg, CrCl > 30 mL/min) *Enoxaparin/Lovenox 30 mg SQ daily (WT < 150 kg, CrCl > 10-29 mL/min) *Enoxaparin/Lovenox 30 mg SQ BID (WT < 150 kg, CrCl > 30 mL/min) AND/OR *Sequential Compression Device (SCD) 5 or more Highest Order ONE of the following medications: *Heparin 5000 units SQ TID (Preferred with Epidurals) *Enoxaparin/Lovenox 40 mg SQ daily (WT < 150 kg, CrCl > 30 mL/min) *Enoxaparin/Lovenox 30 mg SQ daily (WT < 150 kg, CrCl > 10-29 mL/min) *Enoxaparin/Lovenox 30 mg SQ BID (WT < 150 kg, CrCl > 30 mL/min) AND *Sequential Compression Device (SCD) Assessment and Plan - Assessment (1) Bradycardia Code(s): R00.1 - Bradycardia, unspecified Status: Acute (2) COPD (chronic obstructive pulmonary disease) Code(s): J44.9 - Chronic obstructive pulmonary disease, unspecified Status: Acute (3) Tobacco abuse Code(s): Z72.0 - Tobacco use Status: Acute (4) Hyperlipidemia Code(s): E78.5 - Hyperlipidemia, unspecified Status: Acute - Plan * Bradycardia: Patient was admitted to chest pain center, denies having chest pain. He was seen by Dr. Kar López of cardiology and the chest pain center and believes that his symptoms are related to likely bradycardia and also having PVCs. He has recommend the patient discussed with his PCP to have a Holter monitor placed on outpatient basis. Return to ED for interval issues. * COPD: Continue his nebulizer treatments. He needs to quit smoking. * Tobacco abuse: Patient counseled on the importance of smoking cessation. 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 Patient is stable at this time. He is agreeable to this plan. H&P: Quality - VTE Deep Vein Thrombosis/Pulmonary Embolism Present on Admission: No
--- NOTE | 2018-10-31 10:33 | ECG ---
Date Performed: 10/31/2018 Time Performed: 01:07:54 PTAGE: 63 years EKG: Sinus rhythm WITH OCCASIONAL SUPRAVENTRICULAR PREMATURE COMPLEXES INCOMPLETE RIGHT BUNDLE BRANCH BLOCK ABNORMAL E CG PREVIOUS TRACING : 10/30/2018 21.46 Since previous tracing, no significant change noted DOCTOR: Kar López Interpretating Date/Time 10/31/2018 10:31:51
--- NOTE | 2018-10-31 10:33 | ECG ---
Date Performed: 10/30/2018 Time Performed: 21:46:45 PTAGE: 63 years EKG: Sinus rhythm INCOMPLETE RIGHT BUNDLE BRANCH BLOCK BORDERLINE ECG PREVIOUS TRACING : 10/30/2018 18.25 Since previous tracing, no significant change noted DOCTOR: Kar López Interpretating Date/Time 10/31/2018 10:32:47
== END 2018-10-31 09:31 | disposition home or self-care (01) ==
LOC: NEDA 17:40 → NEPE 17:40 → NEDH 10-31 00:31 → NEPFCDU 10-31 04:14
PROVIDERS: ADMIT Internal Medicine Cardiovascular Disease; ATTEND Internal Medicine Cardiovascular Disease
CPT/HCPCS: 71010; 71045; 80053; 82550; 83735; 84443; 84484; 85025; 85610; 85730; 93005; 94640; 94664; 94665; 99285; G0378